=== PATIENT | male | born 1945 | race Caucasian/White ===

== ENCOUNTER 2025-06-23 14:29 | Emergency (ER) | payer SELFPAY ==
--- NOTE | ~2025-06-23 | XR_ITS ---
EXAMINATION: XR CHEST 2 VIEWS HISTORY: CP COMPARISON: There are no prior studies available for comparison. FINDINGS: PA and lateral views of the chest are submitted. The lungs are expanded and clear. There is no pleural effusion, pneumothorax, or pulmonary vascular congestion. The heart is normal in size. There is mild degenerative disc disease of the spine. XR/XR chest 2V IMPRESSION: Clear lungs. Electronically signed by: Nestor Katz MD 06/23/2025 03:39 PM [facility]
--- NOTE | ~2025-06-23 | CT_ITS ---
EXAMINATION: CT CERVICAL SPINE WITHOUT IV CONTRAST HISTORY: fall, +head strike. TECHNIQUE: Helical CT of the cervical spine was performed per standard departmental protocol. Coronal and sagittal reformatted images were also evaluated. One or more of the following techniques was used for dose reduction: Automated exposure control, adjustment of the mA and/or kV according to patient size, use of iterative reconstruction technique. DLP: 436 mGy-cm COMPARISON: There are no prior studies available for comparison. FINDINGS: CERVICAL SPINE: The vertebral bodies maintain normal height and alignment without evidence of fracture. There is diffuse severe degenerative disc disease with disc space narrowing and osteophyte formation. There is slight anterolisthesis of C2 on C3, likely related to osteoarthritis of the facet joints. Evaluation for disc pathology is limited by lack of intrathecal contrast material, however. BRAIN: The visualized portion of the brain is unremarkable. SINUSES: The visualized paranasal sinuses, mastoid air cells and middle ear cavities are unremarkable. LUNG APICES: There is pleural calcification at the lung apices. SOFT TISSUES: The visualized paraspinal soft tissues are unremarkable. CT/CT cervical spine wo IV con IMPRESSION: No evidence of fracture of the cervical spine. Degenerative changes as described. Electronically signed by: Nestor Katz MD 06/23/2025 03:57 PM EST
--- NOTE | ~2025-06-23 | CT_ITS ---
EXAMINATION: CT HEAD WITHOUT CONTRAST CLINICAL INFORMATION: 80-year-old male. Fall, head strike, denies blood thinners. COMPARISON: None available. TECHNIQUE: Contiguous axial imaging was performed from the skull base to vertex without intravenous administration of contrast. This CT examination was performed using dose optimization techniques as appropriate, variously including the following: *Automated exposure control *Adjustment of mA and/or kV according to patient size (this includes techniques or standardized protocols for targeted exams where dose is matched to indication/reason for exam; i.e. extremities or head) *Use of iterative reconstruction technique FINDINGS: There is no evidence of intracranial hemorrhage or extra-axial fluid collection. There is no mass effect, or edema. No CT evidence of acute territorial infarct. Ventricles, sulci, and cisterns are mildly prominent, in keeping with age-related cerebral and cerebellar volume loss. No hydrocephalus. No midline shift. Negative hyperdense MCA sign. Negative insular ribbon sign. Patchy periventricular and deep white matter hypoattenuation is consistent with very mild small vessel ischemic changes. Normal pituitary. Mild atheromatous calcification of the bilateral carotid siphons and V4 segments vertebral arteries bilaterally. Globes and orbital contents image normally. There are bilateral lens replacements. No extracranial soft tissue abnormalities. The paranasal sinuses, mastoid air cells, and tympanic cavities are normally aerated. No suspicious bony abnormalities. There are no acute fractures evident. CT/CT head/brain wo IV con IMPRESSION: No acute intracranial abnormality. No fracture evident. Electronically signed by: Maximino Gonzalez MD 06/23/2025 03:59 PM [facility]
[2025-06-23 14:51] VITALS: BP 189/105; PULSE 97; RESP 18; TEMP 36.4; O2SAT 95; BMI 27.6
--- NOTE | 2025-06-23 14:51 | ED_ITS ---
HPI - Head Injury General Chief complaint: Fall Stated complaint: fall wilmer inj Related Data Allergies Allergy/AdvReac Type Severity Reaction Status Date / Time No Known Allergies Allergy Verified 06/23/25 14:55 [facility] Social History Social History Advance Directives: No Advance Directives Information Provided: No Physical Exam 2 Vital Signs: Vital Signs: Last Vital Signs Temp 97.6 F 06/23/25 14:51 Pulse 97 06/23/25 14:51 Resp 18 06/23/25 14:51 BP 189/105 H 06/23/25 14:51 Pulse Ox 95 06/23/25 14:51 O2 Del Method Room Air 06/23/25 14:51 BMI result Body Mass Index 27.6 Course Course Course Narrative: This is an RME: Additional HPI, ROS, PE not included below will be deferred to primary provider. RME assessment and note performed by: Shahla Harman PA-C This is a 39-jloy-stdp, with a hx of GERD, who presents to the ER with complaints of ?syncopal episode which occurred 2 days ago. Patient reports that 2 days ago his legs collapsed from underneath him and he fell, striking the right side of his head. Denies LOC. He is uncertain what caused him to have this occur. He went to his primary care who sent him to the emergency room for further evaluation. He is not anticoagulated. He does report that he has had intermittent chest pressure and heartburn. He does report he is under a significant amount of stress. Plan: Labs, EKG, CT head/neck Reevaluation(s) Reevaluation #1: Patient left without completing treatment. Medical Decision Making Lab Data 06/23/25 15:20 06/23/25 15:20 Labs: Lab Results 06/23/25 Range/Units 15:20 WBC 9.8 (4.8-10.8) X10*3/uL RBC 5.09 (4.60-5.80) X10*6/uL Hgb 14.6 (14.0-18.0) g/dl Hct 44.6 (42.0-52.0) % MCV 87.6 (80.0-98.0) fL MCH 28.7 (27.0-33.0) pg MCHC 32.7 (31.0-36.0) g/dl RDW 13.4 (11.0-16.0) % Plt Count 348 (160-400) X10*3/uL MPV 9.9 (9.4-12.4) fL Immature Gran % (Auto) 0.6 H (0.0-0.4) % Neut % (Auto) 64.4 (45-73) % Lymph % (Auto) 23.4 (20-40) % [place] % (Auto) 8.5 (2-11) % Eos % (Auto) 2.4 (0-4) % Baso % (Auto) 0.7 (0-2) % Lymph # (Auto) 2.3 (1.2-4.9) X10*3/uL [place] # (Auto) 0.8 (0.1-1.2) X10*3/uL Eos # (Auto) 0.2 (0.0-0.4) X10*3/uL Baso # (Auto) 0.1 (0.0-0.2) X10*3/uL Abs Immat Gran (auto) 0.06 H (0.00-0.03) X10*3/uL Absolute Neuts (auto) 6.3 (2.0-8.3) x10*3/uL Absolute Nucleated RBC 0.000 (0.0-0.012) X10*3/uL Nucleated RBC % (auto) 0.0 (0.0-0.2) /100WBC Sodium 140 (135-145) mmol/L Potassium 3.8 (3.3-5.1) mmol/L Chloride 109 H (96-108) mmol/L Carbon Dioxide 23 (22-29) mmol/L Anion Gap 12 (12-20) BUN 22 H (9-16) mg/dL Creatinine 1.27 (0.5-1.4) mg/dL Estim Creat Clear Calc 48.0 Estimated GFR 54 Random Glucose 115 (60-115) mg/dL Calcium 9.6 (8.4-10.2) mg/dL Magnesium 1.8 (1.6-2.6) mg/dL Total Bilirubin 0.3 (0.0-1.0) mg/dL Direct Bilirubin 0.1 (0.0-0.5) mg/dL AST 24 (5-37) U/L ALT 29 (0-40) U/L Alkaline Phosphatase 50 (39-117) U/L Troponin I High Sens 6.0 (<3.5-35.0) ng/L Total Protein 7.7 (6.5-8.0) g/dL Albumin 4.5 (3.5-5.0) g/dL Discharge Plan Discharge Clinical Impression: Fall Patient Disposition: Left W/O Completing Treatment Discharge Date/Time: 06/23/25 22:14
--- NOTE | 2025-06-23 15:01 | ECG_ITS ---
Test Reason : cp Blood Pressure : */* mmHG Vent. Rate : 95 BPM Atrial Rate : 95 BPM P-R Int : 184 ms QRS Dur : 76 ms QT Int : 354 ms P-R-T Axes : 44 -37 50 degrees QTcB Int : 444 ms Normal sinus rhythm Left axis deviation Abnormal ECG No previous ECGs available Referred By: Shahla Harman Electronically Signed By: REJI RAINES MD
[2025-06-23 15:32] LABS: MANUAL DIFF FLAG NO
[2025-06-23 15:39] LABS: Hematocrit 44.6 % (42.0-52.0); Hemoglobin 14.6 g/dl (14.0-18.0); Imm Gran Abs Auto 0.06 X10*3/uL (0.00-0.03); Imm Gran Pct Auto 0.6 % (0.0-0.4); Lymphocytes Absolute Auto 2.3 X10*3/uL (1.2-4.9); Mean Corpuscular HGB Conc 32.7 g/dl (31.0-36.0); Mean Corpuscular Hemoglobin 28.7 pg (27.0-33.0); Mean Corpuscular Volume 87.6 fL (80.0-98.0); NRBC Abs Auto 0.000 X10*3/uL (0.0-0.012); NRBC Pct Auto 0.0 /100WBC (0.0-0.2); Platelet Count 348 X10*3/uL (160-400); Red Blood Count 5.09 X10*6/uL (4.60-5.80); White Blood Count 9.8 X10*3/uL (4.8-10.8)
[2025-06-23 15:50] LABS: Alanine Aminotransferase 29 U/L (0-40); Albumin Level 4.5 g/dL (3.5-5.0); Alkaline Phosphatase 50 U/L (39-117); Anion Gap 12 (12-20); Aspartate Amino Transferase 24 U/L (5-37); Blood Urea Nitrogen 22 mg/dL (9-16); Calcium 9.6 mg/dL (8.4-10.2); Carbon Dioxide 23 mmol/L (22-29); Chloride 109 mmol/L (96-108); Creatinine Clr Calc Pharmacy 48.0; Estimated Glomerular Filt Rate 54; Magnesium 1.8 mg/dL (1.6-2.6); Potassium 3.8 mmol/L (3.3-5.1); Sodium 140 mmol/L (135-145); Total Protein 7.7 g/dL (6.5-8.0)
[2025-06-23 15:58] LABS: Troponin-I High Sensitivity 6.0 ng/L (<3.5-35.0)
--- OUTSIDE RECORDS SUMMARY | 2025-06-23 23:44 | XMS_ITS | Clinical Summary ---
Author Organization [facility] Address [address] [place] [phone] Phone Care Team Providers Care Flight Communications Operator Name Role Phone Unknown, Unknown Primary Care Provider Tiki witt Allergies Active Allergy Reactions Criticality Noted Date Comments Etodolac GI Upset 03/10/2007 Medications aspirin 81 MG EC tablet Take 81 mg by mouth daily. 12/25/2023 Active finasteride (PROSCAR) 5 mg tablet Take 5 mg by mouth daily. 05/18/2024 Active tamsulosin (FLOMAX) 0.4 mg Cap Take 1 capsule by mouth nightly at bedtime. 12/29/2023 Active mecobalamin (B12 ACTIVE ORAL) Take by mouth daily. Did not know dosage Active ascorbic acid, vitamin C, (VITAMIN C) 500 MG tablet Take 500 mg by mouth daily. Active omeprazole (PRILOSEC) 20 MG tablet Take 20 mg by mouth daily. Active Social History Tobacco Use Types Packs/Day Years Used Date Smoking Tobacco: Never Smokeless Tobacco: Never Tobacco Cessation:Counseling Given: Not Answered Alcohol Use Standard Drinks/Week Comments Never 0 (1 standard drink = 0.6 oz pur e alcohol) Education Answer Date Recorded Are you interested in more education? Not on josephine e 05/31/2024 Are you concerned about learning? Not on file 05/31/2024 No 05/31/2024 No 05/31/2024 Digital Access Answer Date Recorded No 05/31/2024 No 05/31/2024 Reliable internet access at home? Not on file 05/31/2024 Device with a working camera? Not on file Intimate Partner Violence Answer Date R ecorded Denied Basic Needs Not on file 07/29/2024 In the past 12 months have y ou been in a relationship with a person who hurts, threatens, or tries to control you? No 07/29/2024 Worried food would run out Not on file 07/29 In the past 12 months have y ou been in a relationship with a person who hurts, threatens, or tries to control you? No 07/29/2024 Sex and Gender Information Value Date Recorded Sex Assigned at Not on file Legal Sex Male 2:46 PM EST Gender Identity Not on file Sexual Orientation Not on file Last Filed Vital Signs Vital Sign Reading Time Taken Comments Blood Pressure - - Pulse - - Temperature - - Respiratory Rate - - Oxygen Saturation - - Inhaled Oxygen Concentration - - Weight 86.2 kg (190 lb) 07/29/2024 11:50 AM EST Height 172.7 cm (5' 8 ) 07/29/2024 11:50 AM EST Body Mass Index 28.89 07/29/2024 11:50 AM EST Plan of Treatment Not on file Medical Devices Not on file [place] [address] [address] [place] [address] Care Teams Flight Communications Operator Relationship Specialty Start Date End Date Unknown, Unknown, PCP - General 05/31/24 Additional Source Comments The information contained in this document represents components of the legal health record. It is not the complete legal health record.[facility]
--- OUTSIDE RECORDS SUMMARY | 2025-06-23 23:44 | XMS_ITS | Encounter Summary ---
Author Organization [facility] Address [facility] [address] [place] [address] Phone Care Team Providers Care Physical Ther Name Role Phone Unknown, Unknown Primary Care Provider Tiki witt Encounter Details Date Type Department Care Team (Latest Contact Info) Description 05/31/2024 Transcribe Orders [facility] Phleb Eileen [address] [address] Rosetta Dick NP [address] [place] [address] Fecal smearing (Primary Dx); Change in bowel habits; Diarrhea, unspecified type Social History Tobacco Use Types Packs/Day Years Used Date Smoking Tobacco: Never Assessed Education Answer Date Recorded Are you interested in more education? Not on josephine e 05/31/2024 Are you concerned about learning? Not on file 05/31/2024 No 05/31/2024 No 05/31/2024 Digital Access Answer Date Recorded No 05/31/2024 No 05/31/2024 Reliable internet access at home? Not on file 05/31/2024 Device with a working camera? Not on file Sex and Gender Information Value Date Recorded Sex Assigned at Not on file Legal Sex Male 2:46 PM EST Gender Identity Not on file Sexual Orientation Not on file documented as of this encounter Plan of Treatment Not on file documented as of this encounter Results * TSH (05/31/2024 2:52 PM EST) TSH 3.41 0.27 - 4.20 uIU/mL [facility] Blood 05/31/2024 2:52 PM EST 05/31/2024 3:04 PM EST Rosetta Dick [employer] [facility] LAB BLOOD BKR ORDERABLES Final Result Performing Organization Address City/[facility]/ZIP Co de Phone Number [address] [address] * C-Reactive Protein (05/31/2024 2:52 PM EST) C REACTIVE PROTEIN 3.2 0.0 - 4.0 mg/L [facility] Blood 05/31/2024 2:52 PM EST 05/31/2024 3:04 PM EST Rosetta Dick NP LAB BLOOD BKR ORDERABLES Final Result Performing Organization Address [facility] Co de Phone Number [address] [address] * (ABNORMAL) Comprehensive metabolic panel (05/31/2024 2:52 PM EST) SODIUM 138 133 - 146 mmol/L [facility] POTASSIUM 4.1 3.3 - 5.1 mmol/L [facility] CHLORIDE 102 96 - 108 mmol/L [facility] CO2 25 21 - 35 mmol/L [facility] BUN 21(H) 6 - 19 mg/dL [facility] CREATININE 1.20 0.5 - 1.5 mg/dL [facility] GLUCOSE 98 70 - 99 mg/dL [facility] ALBUMIN 4.3 3.9 - 4.8 g/dL [facility] TOTAL PROTEIN 7.9 6.5 - 8.0 g/dL [facility] CALCIUM 9.8 8.4 - 10.3 mg/dL [facility] ALKALINE PHOSPHATASE 58 39 - 117 U/L [facility] TOTAL BILIRUBIN 0.3 0.0 - 1.2 mg/dL [facility] AST 25 0 - 37 U/L [facility] ALT 37 0 - 40 U/L [facility] GLOBULIN 3.6 1 - 4.8 g/dL [facility] EGFR 61 >59 mL/min/1.7 3m2 [facility] Comment:Estimated glomerular filtration rate calculated using the CKD-EPI refit equation. ANION GAP 15 10 - 20 mmol/L [facility] Blood 05/31/2024 2:52 PM EST 05/31/2024 3:04 PM EST Rosetta Dick NP LAB BLOOD BKR ORDERABLES Final Result Performing Organization Address City/[facility]/ZIP Co de Phone Number [address] [address] * CBC (05/31/2024 2:52 PM EST) WBC 9.62 4.00 - 11.00 K/uL [facility] RBC 4.88 4.50 - 5.90 M/uL [facility] HGB 14.3 13.5 - 17.5 g/dL [facility] HCT 43.7 41.0 - 53.0 % [facility] PLT 336 150 - 450 K/uL [facility] MCV 89.5 80.0 - 100.0 fL [facility] MCH 29.3 27.0 - 31.0 pg [facility] MCHC 32.7 32.0 - 36.0 g/dL [facility] RDW 13.2 11.5 - 14.5 % [facility] MPV 10.8 8.4 - 12.0 fL [facility] NRBC 0.00 0.00 /100 WBCs [facility] ABSOLUTE NRBC 0.00 0.00 K/uL [facility] Blood 05/31/2024 2:52 PM EST 05/31/2024 3:04 PM EST Rosetta Dick NP LAB BLOOD BKR ORDERABLES Final Result Performing Organization Address City/[facility]/ZIP Co de Phone Number [address] [address] * Immunoglobulin A (05/31/2024 2:52 PM EST) IgA 330 70 - 400 mg/dL [facility] Blood 05/31/2024 2:52 PM EST 05/31/2024 3:04 PM EST Rosetta Dick NP LAB BLOOD BKR ORDERABLES Final Result Performing Organization Address City/[facility]/ZIP Co de Phone Number [facility] [address] [place] [address] * Tissue transglutaminase IgA (05/31/2024 2:52 PM EST) TTG IGA ANTIBODY <1.2 <4.0 (Negative) U/mL [facility] Blood 05/31/2024 2:52 PM EST 05/31/2024 3:04 PM EST Rosetta Dick NP LAB BLOOD BKR ORDERABLES Final Result Performing Organization Address City/[facility]/ZIP Co de Phone Number [facility] [address] [place] [phone] documented in this encounter Visit Diagnoses Diagnosis Fecal smearing- Primary Change in bowel habits Other symptoms involving digestive system Diarrhea, unspecified type documented in this encounter Care Teams Physical Ther Relationship Specialty Start Date End Date Unknown, Unknown, PCP - General 05/31/24 documented as of this encounter Additional Source Comments The information contained in this document represents components of the legal health record. It is not the complete legal health record.[facility]
--- OUTSIDE RECORDS SUMMARY | 2025-06-23 23:45 | XMS_ITS | Encounter Summary ---
Author Organization [facility] Address [facility] [employer] [facility] [address] [place] [phone] Phone Care Team Providers Care Electro Mechanic Name Role Phone Unknown, Unknown Primary Care Provider Tiki witt Encounter Details Date Type Department Care Team ([facility] st Contact Info) Description 08/04/2024 Procedure Pass [facility] Endoscopy Admitting Dept Virtual Department [address] [place] [address] Social History Tobacco Use Types Packs/Day Years Used Date Smoking Tobacco: Never Smokeless Tobacco: Never Alcohol Use Standard Drinks/Week Comments Never 0 [...] on file documented as of this encounter Visit Diagnoses Not on filedocumented in this encounter Care Teams Electro Mechanic Relationship Specialty Start Date End Date Unknown, Unknown, PCP - General 05/31/24 documented as of this encounter Additional Source Comments The information contained in this document represents components of the legal health record. It is not the complete legal health record.[facility]
== END 2025-06-23 22:14 | disposition left against medical advice (07) ==
PROVIDERS: Physician Assistant Medical; Emergency Provider Emergency Medicine
DX: S09.90XA Unspecified injury of head, initial encounter (principal); R51.9 Headache, unspecified; R07.89 Other chest pain; M54.2 Cervicalgia; F43.9 Reaction to severe stress, unspecified; W19.XXXA Unspecified fall, initial encounter; Y93.9 Activity, unspecified; Y92.9 Unspecified place or not applicable; Y99.8 Other external cause status
CPT/HCPCS: 36415; 70450; 71046; 72125; 80048; 80076; 83735; 84484; 85025; 93005; 99283; 99284

== ENCOUNTER → 2025-06-23 15:00 | Outpatient (BNV) | payer SELFPAY | PROVIDERS: Visit Provider Radiology Diagnostic Radiology | DX: S09.90XA Unspecified injury of head, initial encounter (principal); Z04.3 Encounter for examination and observation following other accident; M50.30 Other cervical disc degeneration, unspecified cervical region; R07.9 Chest pain, unspecified | CPT/HCPCS: 70450; 71046; 72125 ==

== ENCOUNTER → 2025-06-23 15:01 | Outpatient (BNV) | payer SELFPAY | PROVIDERS: Visit Provider Internal Medicine Cardiovascular Disease | DX: R94.31 Abnormal electrocardiogram [ECG] [EKG] (principal); R07.9 Chest pain, unspecified | CPT/HCPCS: 93010 ==